=== PATIENT | female | born 1985 | race Asian ===

== ENCOUNTER 2016-10-29 04:35 | Inpatient (IN) | payer BC, SELFPAY ==
[2016-10-28 14:59] LABS: BASOPHILS % (AUTO) 0.3 % (0.0-2.0); EOSINOPHILS % (AUTO) 0.4 % (0.0-4.0); LYMPHOCYTES # (AUTO) 1.7 K/uL (1.0-5.5); MEAN CORPUSCULAR HEMOGLOBIN 32 pg (27-31); MEAN CORPUSCULAR HGB CONC 34 % (32-36); MEAN CORPUSCULAR VOLUME 93 fL (79.0-98.0); MONOCYTES # (AUTO) 0.6 K/uL (0.0-1.0); MONOCYTES % (AUTO) 6.8 % (1.7-9.3); NEUTROPHILS # (AUTO) 5.9 K/uL (1.8-7.7); NEUTROPHILS % (AUTO) 71.5 % (40.0-70.0); PLATELET COUNT (AUTO) 147 K/uL (130-430); RED BLOOD CELL COUNT(AUTO) 3.43 MIL/uL (4.2-6.2); RED CELL DISTRIBUTION WIDTH 13.1 % (9.0-15.0); WHITE BLOOD COUNT (AUTO) 8.2 K/uL (4.8-10.8)
[2016-10-28 15:11] LABS: BILIRUBIN,URINE NEGATIVE (NEGATIVE); BLOOD, URINE NEGATIVE (NEGATIVE); CLARITY/URINE SL HAZY (CLEAR); COLOR,URINE YELLOW (YELLOW); GLUCOSE,URINE TRACE (NEGATIVE); KETONES,URINE NEGATIVE (NEGATIVE); LEUKOCYTE ESTERASE ,URINE 1+ (NEGATIVE); NITRITE, URINE NEGATIVE (NEGATIVE); PROTEIN URINE NEGATIVE (NEGATIVE); UROBILINOGEN,URINE 0.2 (0.2-1.0)
[2016-10-28 15:42] LABS: RBC,URINE NONE SEEN /HPF (0-3)
[2016-10-28 15:43] LABS: BACTERIA,URINE MANY /HPF (None Seen); WBC,URINE 20-50 /HPF (0-3)
[2016-10-28 15:44] LABS: MUCUS,URINE None Seen /LPF (None Seen)
[~2016-10-29] VITALS: Ht 160 cm; Wt 63.5 kg
[2016-10-29] MEDS ORDERED: CEFAZOLIN 2 GM IVPB PREMIX 50 ML IV ONE ×2 (05:30→14:00)
[2016-10-29 05:51] VITALS: BP 118/58; PULSE 60; RESP 18; TEMP 98.5
[2016-10-29] MEDS: LR 1,000 ML IV SCH (06:01)
[2016-10-29] MEDS ORDERED: OXYTOCIN/NORMAL SALINE 1,000 ML IV ONE (07:29)
[2016-10-29] MEDS ORDERED: ANUSOL 1 EA SUPP.RECT (PREPARATION H) RC PRN (07:30)
[2016-10-29] MEDS ORDERED: MEASLES,MUMPS&RUBELLA VACC/PF 12500 UNIT/0.5 ML VIAL SUBQ PRN (07:30)
[2016-10-29] MEDS ORDERED: LANOLIN 7 GM OINT. TP PRN (07:30)
[2016-10-29] MEDS ORDERED: HYDROcodone/ACETAMIN 5-325 MG TAB (NORCO/ VICODIN) PO PRN (07:30)
[2016-10-29] MEDS ORDERED: LR 1,000 ML IV SCH (07:58)
[2016-10-29] MEDS ORDERED: NALBUPHINE HCL 10 MG/ML AMP IVP PRN (08:00)
[2016-10-29] MEDS ORDERED: ONDANSETRON HCL 4 MG/2 ML VIAL IVP PRN ×2 (08:00)
[2016-10-29] MEDS ORDERED: DIPHENHYDRAMINE INJ 50 MG/ML VIAL IVP PRN (08:00)
[2016-10-29] MEDS ORDERED: HYDROmorphone 1 MG INJ. 1 MG/ML AMPUL IVP PRN ×2 (08:00)
[2016-10-29] MEDS ORDERED: HYDROmorphone 2 MG/ML VIAL IVP PRN ×2 (08:00)
[2016-10-29] MEDS ORDERED: NALOXONE HCL 0.4 MG/ML AMP (NARCAN) IVP PRN (08:00)
[2016-10-29] MEDS ORDERED: MEPERIDINE HCL/PF 25 MG/ML DISP.SYRIN IVP PRN ×2 (08:00)
[2016-10-29] MEDS ORDERED: MORPHINE SULFATE 10MG/10ML PF AMP SP SCH (08:00)
[2016-10-29] MEDS ORDERED: ePHEDrine sulfate 50 MG/ML VIAL IVP PRN (08:00)
[2016-10-29 08:35] VITALS: BP 125/74
[2016-10-29] MEDS ORDERED: CEFAZOLIN 1 GM IVPB PREMIX 50 ML IV SCH (12:00)
[2016-10-29] MEDS ORDERED: BUPIVACAINE /PF 0.75% 10 ML VIAL INJ ONE (14:00)
[2016-10-29] MEDS ORDERED: MORPHINE SULFATE 10MG/10ML PF AMP ONE (14:00)
[2016-10-29] MEDS ORDERED: LR 1,000 ML IV.SOLN IV ONE (14:00)
[2016-10-29] MEDS: CEFAZOLIN SOD 1 GM/ ISO 50 ML PREMIX IV SCH (19:59)
[2016-10-29] MEDS ORDERED: TEMAZEPAM 15 MG CAPSULE PO PRN (21:00)
[2016-10-29] MEDS ORDERED: KETOROLAC TROMETHAMINE 30 MG VIAL ONE (22:29)
[2016-10-29] MEDS ORDERED: KETOROLAC TROMETHAMINE 30 MG VIAL IVP ONE (22:30)
[2016-10-30] MEDS: CEFAZOLIN SOD 1 GM/ ISO 50 ML PREMIX IV SCH (01:49)
[2016-10-30] MEDS: LR 1,000 ML IV SCH (01:54)
[2016-10-30] MEDS: IBUPROFEN 600 MG TABLET PO SCH ×4 (06:19→23:52)
[2016-10-30 07:21] LABS: BASOPHILS % (AUTO) 0.1 % (0.0-2.0); EOSINOPHILS % (AUTO) 0.2 % (0.0-4.0); HEMATOCRIT 32.2 % (36-48); HEMOGLOBIN 10.9 g/dL (12.0-16.0); LYMPHOCYTES # (AUTO) 1.1 K/uL (1.0-5.5); LYMPHOCYTES % (AUTO) 8.7 % (20.5-51.5); MEAN CORPUSCULAR HEMOGLOBIN 32 pg (27-31); MEAN CORPUSCULAR HGB CONC 34 % (32-36); MEAN CORPUSCULAR VOLUME 93 fL (79.0-98.0); MONOCYTES # (AUTO) 0.7 K/uL (0.0-1.0); MONOCYTES % (AUTO) 5.8 % (1.7-9.3); NEUTROPHILS % (AUTO) 85.2 % (40.0-70.0); PLATELET COUNT (AUTO) 125 K/uL (130-430); RED BLOOD CELL COUNT(AUTO) 3.45 MIL/uL (4.2-6.2); RED CELL DISTRIBUTION WIDTH 13.1 % (9.0-15.0); WHITE BLOOD COUNT (AUTO) 12.8 K/uL (4.8-10.8)
[2016-10-30] MEDS: OXYCODONE/ACETAMINOPHEN 5-325 TABLET PO PRN ×3 (07:59→16:04)
[2016-10-30] MEDS ORDERED: OXYCODONE/ACETAMINOPHEN 5-325 TABLET PO ONE (16:00)
[2016-10-30] MEDS: DOCUSATE SODIUM 100 MG CAPSULE PO PRN (23:52)
[2016-10-30] MEDS: SIMETHICONE 80 MG TAB.CHEW PO PRN (23:53)
[2016-10-31] MEDS: IBUPROFEN 600 MG TABLET PO SCH ×4 (05:51→18:00)
[2016-10-31] MEDS: SIMETHICONE 80 MG TAB.CHEW PO PRN ×2 (05:52→23:45)
[2016-10-31] MEDS: OXYCODONE/ACETAMINOPHEN 5-325 TABLET PO PRN ×4 (13:50→23:45)
[2016-10-31] MEDS: DOCUSATE SODIUM 100 MG CAPSULE PO PRN ×2 (18:23→23:45)
[2016-11-01] MEDS: OXYCODONE/ACETAMINOPHEN 5-325 TABLET PO PRN ×3 (06:13→20:19)
[2016-11-01] MEDS: SIMETHICONE 80 MG TAB.CHEW PO PRN ×2 (06:13→11:16)
[2016-11-01] MEDS: IBUPROFEN 600 MG TABLET PO SCH ×2 (11:15→17:52)
[2016-11-01] MEDS: DOCUSATE SODIUM 100 MG CAPSULE PO PRN (11:16)
[2016-11-02] MEDS: OXYCODONE/ACETAMINOPHEN 5-325 TABLET PO PRN ×2 (02:57→09:09)
[2016-11-02 11:35] LABS: EOSINOPHILS # (AUTO) 0.1 K/uL (0.0-0.4); EOSINOPHILS % (AUTO) 0.8 % (0.0-4.0); HEMATOCRIT 35.9 % (36-48); HEMOGLOBIN 12.1 g/dL (12.0-16.0); LYMPHOCYTES # (AUTO) 1.2 K/uL (1.0-5.5); LYMPHOCYTES % (AUTO) 10.8 % (20.5-51.5); MEAN CORPUSCULAR HEMOGLOBIN 32 pg (27-31); MEAN CORPUSCULAR HGB CONC 34 % (32-36); MEAN CORPUSCULAR VOLUME 95 fL (79.0-98.0); MONOCYTES # (AUTO) 0.5 K/uL (0.0-1.0); MONOCYTES % (AUTO) 4.1 % (1.7-9.3); NEUTROPHILS # (AUTO) 9.5 K/uL (1.8-7.7); NEUTROPHILS % (AUTO) 84.3 % (40.0-70.0); PLATELET COUNT (AUTO) 264 K/uL (130-430); RED BLOOD CELL COUNT(AUTO) 3.79 MIL/uL (4.2-6.2); RED CELL DISTRIBUTION WIDTH 13.2 % (9.0-15.0); WHITE BLOOD COUNT (AUTO) 11.3 K/uL (4.8-10.8)
[2016-11-02] MEDS: IBUPROFEN 600 MG TABLET PO SCH (12:21)
[2016-11-02] MEDS: DOCUSATE SODIUM 100 MG CAPSULE PO PRN (12:22)
[2016-11-02] MEDS: SIMETHICONE 80 MG TAB.CHEW PO PRN (12:23)
== END 2016-11-02 13:00 | disposition home or self-care (01) | DRG 766 ==
LOC: SPU 04:35
PROVIDERS: ADMIT Obstetrics & Gynecology; ATTEND Obstetrics & Gynecology
PROC: 10D00Z1 Extraction of Products of Conception, Low, Open Approach (ICD-10-PCS; principal; 2016-10-29 07:30)
DX: O32.1XX0 Maternal care for breech presentation, not applicable or unspecified (principal); Z37.0 Single live birth; Z3A.39 39 weeks gestation of pregnancy; Z88.8 Allergy status to other drugs, medicaments and biological substances
CPT/HCPCS: 36415; 81000-TC; 85025; 86592; 86886; 86900; 86901; 94760; J0690; J1885; J2274; J2590; J3490; J7120